=== PATIENT | female | born 1935 | race Caucasian/White ===

== ENCOUNTER 2023-11-16 10:57 | Observation (INO) | payer MEDICARE ==
[~2023-11-16] VITALS: Ht 152.4 cm; Wt 74.4 kg
[2023-11-16] VITALS (15 sets, daily range): BP systolic 96–146; BP diastolic 25–83
[2023-11-16 11:19] LABS: BASOPHILS 0.6 % (0-2); EOSINOPHILS 0.2 % (0-6); HEMATOCRIT 42.5 % (35.0-50.0); HEMOGLOBIN 14.3 g/dL (12.0-18.0); LYMPHOCYTES 22.7 % (24-44); MCH 30.9 (27-36); MCHC 33.7 g/dl (30-36); MCV 91.8 fl (81-99); NEUTROPHILS 70.5 % (39-80); PLATELET COUNT 183 K/uL (140-440); RBC 4.63 M/ul (4.3-5.7); RDW 13.4 (10.5-15.0)
[2023-11-16] MEDS ORDERED: LACTATED RINGER'S 1,000 ML IV ONE (11:30)
[2023-11-16 11:38] LABS: ALBUMIN 3.6 g/dL (3.4-5.0); ALBUMIN/GLOBULIN RATIO 1.33 (1.1-2.4); ANION GAP 14.5 (7-21); BILIRUBIN, TOTAL 1.3 ng/dL (0.2-1.0); BUN/CREATININE RATIO 16.05 (6.0-28.6); CALCIUM 10.5 mg/dL (8.5-10.1); CREATININE, SERUM 1.37 mg/dL (0.55-1.02); POTASSIUM 3.5 mmol/L (3.5-5.1); PROTEIN, TOTAL 6.3 g/dL (6.4-8.2)
[2023-11-16] MEDS ORDERED: dilTIAZem HCL 25 MG/5 ML VIAL IV ONE ×2 (11:45→13:00)
[2023-11-16 11:53] LABS: INFLUENZA B NAA NEGATIVE (NEGATIVE); RESPIRATORY SYNCYTIAL VIR NAA NEGATIVE (NEGATIVE)
[2023-11-16] MEDS ORDERED: ASPIRIN 81 MG CHEW PO ONE (12:00)
--- OUTSIDE RECORDS SUMMARY | 2023-11-16 12:30 | XMS ---
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 EYessi VISIT COUNT (12 MO.) 1 NADIA Santos TOTAL 1 NOTE: Visits indicate total known visits. ED/UCC VISIT TRACKING (12 MO.) 11/16/2023 10:[address] [facility] [place] TYPE: Emergency COMPLAINT: - WEAKNESS INPATIENT VISIT TRACKING (12 MO.) No inpatient visits to display in this time frame [email or web address]
[2023-11-16] MEDS ORDERED: ACIDOPHILUS PR1 EAC2 PO (12:50)
[2023-11-16] MEDS ORDERED: NORVASC5 MG PO (12:50)
[2023-11-16] MEDS ORDERED: VAZALORE81 MG PO (12:51)
[2023-11-16] MEDS ORDERED: LIPITOR40 MG PO (12:51)
[2023-11-16] MEDS ORDERED: DILTIAZEM HCl/D5W 100 ML IV ONE (13:00)
[2023-11-16] MEDS ORDERED: HYDROmorphone HCL 1 MG/ML SYR IV PRN (13:15)
[2023-11-16] MEDS ORDERED: CHLORTHALIDONE25 MG PO (13:34)
[2023-11-16] MEDS ORDERED: AZELASTINE205.5 MCG/ NS (13:34)
[2023-11-16] MEDS ORDERED: VITAMIN D325 MCG PO (13:35)
[2023-11-16] MEDS ORDERED: ARNUITY ELLIPT50 MCG (13:36)
[2023-11-16] MEDS ORDERED: EZETIMIBE10 MG PO (13:36)
[2023-11-16] MEDS ORDERED: GERITOL COMPLE1 EACH PO (13:36)
[2023-11-16] MEDS ORDERED: HYDROCODON-ACE1 EAC1 PO (13:37)
[2023-11-16] MEDS ORDERED: MAGNEBIND 4001 EAC1 (13:38)
[2023-11-16] MEDS ORDERED: OMEPRAZOLE40 MG PO (13:39)
[2023-11-16] MEDS ORDERED: CYMBALTA30 MG PO (13:39)
[2023-11-16] MEDS ORDERED: TELMISARTAN40 MG PO (13:40)
--- NOTE | 2023-11-16 14:14 | EKG ---
[facility] [address] [facility] [place], [place] [address] Signed Atrial fibrillation with rapid ventricular response Right bundle branch block Left anterior fascicular block Bifascicular block Abnormal ECG No previous ECGs available Confirmed by RICHIE HONG MD ([id number]) on 11/16/2023 2:13:51 PM Electronically Signed By: RICHIE HONG 11/16/23 1414 PATIENT NAME: EROSTRMARIA ELENA Electrocardiogram DATE OF : [birth year] PHYSICIAN: RICHIE HONG REPORT #: [id number] REPORT IS CONFIDENTIAL AND NOT TO BE RELEASED WITHOUT AUTHORIZATION
[2023-11-16] MEDS ORDERED: ondansetron HCL 4 MG/2 ML VIAL IV PRN (16:45)
[2023-11-16] MEDS ORDERED: METOPROLOL TARTRATE 5 MG/5 ML VIAL ONE (17:19)
[2023-11-16] MEDS ORDERED: METOPROLOL TARTRATE 5 MG/5 ML VIAL IV ONE (17:30)
[2023-11-16] MEDS ORDERED: LIDOCAINE & ANTACID 35 ML BTL PO ONE (17:45)
[2023-11-16] MEDS ORDERED: LIDOCAINE & ANTACID 35 ML BTL PO PRN (20:30)
[2023-11-16] MEDS ORDERED: LORazepam 2 MG/ML VIAL IV PRN (20:45)
[2023-11-16] MEDS ORDERED: diphenhydrAMINE HCL 50 MG/ML VIAL IV PRN (20:45)
[2023-11-16] MEDS ORDERED: MELATONIN 3 MG TAB PO PRN (21:00)
[2023-11-16] MEDS ORDERED: APIXABAN 5 MG TAB PO SCH (21:00)
[2023-11-16] MEDS ORDERED: KETOROLAC TROMETHAMINE 15 MG/ML VIAL IV PRN (21:00)
[2023-11-16] MEDS ORDERED: DULOXETINE HCL 30 MG CAP PO SCH (21:00)
[2023-11-17] VITALS (17 sets, daily range): BP systolic 104–147; BP diastolic 59–73
[2023-11-17 05:42] LABS: BASOPHILS 0.7 % (0-2); EOSINOPHILS 0.3 % (0-6); HEMATOCRIT 36.3 % (35.0-50.0); HEMOGLOBIN 12.7 g/dL (12.0-18.0); LYMPHOCYTES 11.9 % (24-44); MCH 31.7 (27-36); MCHC 35.1 g/dl (30-36); MCV 90.3 fl (81-99); MONOCYTES 7.5 % (0-12); NEUTROPHILS 79.6 % (39-80); PLATELET COUNT 146 K/uL (140-440); RBC 4.01 M/ul (4.3-5.7); RDW 13.3 (10.5-15.0)
[2023-11-17 05:53] LABS: ANION GAP 11.4 (7-21); BUN/CREATININE RATIO 16.78 (6.0-28.6); CALCIUM 9.7 mg/dL (8.5-10.1); CREATININE, SERUM 1.37 mg/dL (0.55-1.02); MAGNESIUM 1.4 mg/dL (1.8-2.4); POTASSIUM 3.4 mmol/L (3.5-5.1)
[2023-11-17] MEDS ORDERED: MAGNESIUM SULFATE 2 GM/50 ML BAG IV ONE (07:00)
[2023-11-17] MEDS ORDERED: POTASSIUM CHLORIDE 20 MEQ,LIDOCAINE HCL 1% 20 MG in DEXTROSE 5% 250 ML IV ONE (07:00)
[2023-11-17] MEDS ORDERED: AMLODIPINE BESYLATE 5 MG TAB PO SCH (09:00)
[2023-11-17] MEDS ORDERED: EZETIMIBE 10 MG TAB PO SCH (09:00)
[2023-11-17] MEDS ORDERED: ATORVASTATIN 40 MG TAB PO SCH (09:00)
[2023-11-17] MEDS ORDERED: LOSARTAN POTASSIUM 50 MG TAB PO SCH (09:00)
[2023-11-17] MEDS ORDERED: CHLORTHALIDONE 25 MG TAB PO SCH (09:00)
[2023-11-17] MEDS ORDERED: PANTOPRAZOLE SODIUM 40 MG TABEC PO SCH (09:00)
[2023-11-17] MEDS ORDERED: METOPROLOL TARTRATE 50 MG TAB PO SCH (09:15)
[2023-11-17] MEDS ORDERED: AZELASTINE137 MCG/0. NAS (10:35)
[2023-11-17] MEDS ORDERED: LO-DOSE ASPIRIN81 MG PO (10:37)
[2023-11-17] MEDS ORDERED: HYDROCODON-ACE1 EA11 PO (10:37)
[2023-11-17] MEDS ORDERED: FLUTICASONE PRO16 GM NAS (10:38)
--- NOTE | 2023-11-17 10:44 | EKG ---
[facility] [address] [facility] [place] [address] Signed Sinus rhythm with 1st degree AV block Right bundle branch block Left anterior fascicular block Bifascicular block Abnormal ECG When compared with ECG of 16-NOV-2023 11:06, Sinus rhythm has replaced Atrial fibrillation Vent. rate has decreased BY 62 BPM Non-specific change in ST segment in Anterior leads Confirmed by RICHIE HONG MD ([id number]) on 11/17/2023 10:44:30 AM Electronically Signed By: RICHIE HONG 11/17/23 1044 PATIENT NAME: MARIA ELENA DELA CRUZ Electrocardiogram DATE OF : [birth year] PHYSICIAN: RICHIE HONG REPORT #: [id number] REPORT IS CONFIDENTIAL AND NOT TO BE RELEASED WITHOUT AUTHORIZATION
[2023-11-17 11:31] LABS: BUN/CREATININE RATIO 18.84 (6.0-28.6); CALCIUM 9.7 mg/dL (8.5-10.1); CREATININE, SERUM 1.38 mg/dL (0.55-1.02); MAGNESIUM 2.2 mg/dL (1.8-2.4)
[2023-11-17] MEDS ORDERED: ELIQUIS5 MG PO (11:52)
[2023-11-17] MEDS ORDERED: METOPROLOL TART50 MG PO (11:53)
[2023-11-17] MEDS ORDERED: PHARMACY RENAL DOSE ADJUSTMENT 1 DOSE MISC PO SCH (12:00)
== END 2023-11-17 16:25 | disposition home or self-care (01) ==
LOC: ED 10:57 → CCU 10:59
PROVIDERS: Emergency Medicine; ADMIT Internal Medicine; ATTEND Internal Medicine
DX: I48.91 Unspecified atrial fibrillation (principal); R10.9 Unspecified abdominal pain; R79.89 Other specified abnormal findings of blood chemistry; E78.00 Pure hypercholesterolemia, unspecified; I10 Essential (primary) hypertension; Z66 Do not resuscitate; Z79.82 Long term (current) use of aspirin; Z79.899 Other long term (current) drug therapy; Z20.822 Contact with and (suspected) exposure to COVID-19
CPT/HCPCS: 36415; 74174; 80048; 80053; 83690; 83735; 84484; 85025; 87502; 93005; 93010; A9270; J1200; J1885; J2405; J3475; J3480; J3490; J7060; J7121; Q9967; U0002

== ENCOUNTER 2024-01-31 14:40 | Observation (INO) | payer MEDICARE ==
[~2024-01-31] VITALS: Ht 152.4 cm; Wt 71.7 kg
[~2024-01-31 14:40] MED LIST: ACIDOPHILUS PR1 EAC2 PO; ARNUITY ELLIPT50 MCG; AZELASTINE137 MCG/0. NAS; AZELASTINE205.5 MCG/ NS; CHLORTHALIDONE25 MG PO; CYMBALTA30 MG PO; ELIQUIS5 MG PO; EZETIMIBE10 MG PO; FLUTICASONE PRO16 GM NAS; GERITOL COMPLE1 EACH PO; HYDROCODON-ACE1 EA11 PO; HYDROCODON-ACE1 EAC1 PO; LIPITOR40 MG PO; LO-DOSE ASPIRIN81 MG PO; MAGNEBIND 4001 EAC1; METOPROLOL TART50 MG PO; NORVASC5 MG PO; OMEPRAZOLE40 MG PO; TELMISARTAN40 MG PO; VAZALORE81 MG PO; VENTOLIN HFA18 GM INH; VITAMIN D325 MCG PO
[2024-01-31 15:17] LABS: BILIRUBIN, URINE NEGATIVE (negative); BLOOD/HGB, URINE NEGATIVE (Negative); KETONE, URINE NEGATIVE (Negative); LEUK ESTERASE, URINE NEGATIVE (negative); NITRITE, URINE NEGATIVE (negative); PH, URINE 6.5 (5-7)
[2024-01-31] MEDS ORDERED: AZELASTINE137 MCG/0. NAS (15:21)
[2024-01-31] MEDS ORDERED: METOPROLOL TART25 MG PO (15:21)
[2024-01-31] MEDS ORDERED: EZETIMIBE10 MG PO (15:22)
[2024-01-31 16:22] LABS: BASOPHILS 1.1 % (0-2); EOSINOPHILS 0.3 % (0-6); HEMATOCRIT 42.9 % (35.0-50.0); LYMPHOCYTES 23.8 % (24-44); MCH 30.7 (27-36); MCHC 32.6 g/dl (30-36); MCV 94.2 fl (81-99); MONOCYTES 8.9 % (0-12); NEUTROPHILS 65.9 % (39-80); PLATELET COUNT 200 K/uL (140-440); RBC 4.56 M/ul (4.3-5.7); RDW 13.7 (10.5-15.0)
[2024-01-31 16:41] LABS: ALBUMIN 3.6 g/dL (3.4-5.0); ALBUMIN/GLOBULIN RATIO 1.16 (1.1-2.4); ALCOHOL, MEDICAL <3 ng/dL (<3); ALKALINE PHOSPHATASE 86 U/L (46-116); ALT (SGPT) 19 U/L (14-59); AST (SGOT) 22 U/L (15-37); BUN/CREATININE RATIO 15.07 (6.0-28.6); CALCIUM 10.2 mg/dL (8.5-10.1); CARBON DIOXIDE 27 mmol/L (21-32); CHLORIDE 102 mmol/L (98-107); CREATININE, SERUM 1.26 mg/dL (0.55-1.02); GLOMERULAR FILTRATION RATE,EST 41 mL/min (>60); MAGNESIUM 1.8 mg/dL (1.8-2.4); PROTEIN, TOTAL 6.7 g/dL (6.4-8.2); UREA NITROGEN 19 mg/dL (7-18)
[2024-01-31 20:01] VITALS: BP 155/81
[2024-01-31] MEDS ORDERED: ACETAMINOPHEN 325 MG TAB PO PRN (20:15)
--- NOTE | 2024-01-31 20:21 | NUR ---
THIS RN TO ED FOR BEDSIDE REPORT. PT TRANSPORTED VIA WC TO ROOM 120. PT ORIENTED TO SELF AND LOCATION ONLY. SBA TO BR TO VOID. PT ABLE TO DO OWN DERRICK CARE. BACK TO BED, HATTIE WELL. VS AND WEIGHT OBTAINED. LIMITED ADMISSION HX DUE TO PT CONFUSION. JELLO AND WATER PROVIDED. BED ALARM FOR SAFETY. PT IN VIEW OF NURSES STATION CALL LIGHT IN REACH.
--- NOTE | 2024-01-31 20:50 | NUR ---
BED ALARM SOUNDING. PT BELIEVES SOMETHING IS MOVING IN HER BED. ATTEMPTED TO REORIENT, PT NOT RECEPTIVE. ASSISTED TO REPOSITION. PT REPORTS CHRONIC BACK PAIN 04/04. PRN FOR PAIN ADMIN PER EMAR. NO SWALLOWING ISSUES NOTED. EXTRA BLANKET PROVIDED. BED ALARM IN PLACE.
--- NOTE | 2024-01-31 21:15 | NUR ---
BED ALARM SOUNDING. PT FREQUENTLY LEANING OVER SIDE OF BED TO LOOK FOR "SOMETHING" SHE DROPPED. SEIZURE PADS PLACED ON FLOOR FOR SAFETY.
--- NOTE | 2024-01-31 23:51 | NUR ---
BED ALARM SOUNDING. PT UP TO BR WITH SBA AND FWW TO VOID. GAIT UNSTEADY AT TIMES. PT ABLE TO DO OWN DERRICK CARE. AT SINK TO WASH HANDS. BACK TO BED, HATTIE WELL. PT HALLUCINATING, TALKING TO HER MOTHER SITTING IN THE RECLINER. NO FURTHER NEEDS. BED ALARM FOR SAFETY.
--- NOTE | 2024-02-01 02:16 | NUR ---
PT RESTING IN BED WITH EYES CLOSED. RESPIRATIONS EVEN. 0200 VS HELD AT THIS TIME TO ALLOW PT TO REST. CALL LIGHT IN REACH. BED ALARM FOR SAFETY.
--- NOTE | 2024-02-01 03:13 | NUR ---
PT RESTING IN BED WITH EYES CLOSED. RESPIRATIONS EVEN. CALL LIGHT IN REACH. BED ALARM FOR SAFETY. PT IN VIEW OF NURSES STATION.
--- NOTE | 2024-02-01 04:35 | NUR ---
PT RESTING IN RELAXED POSITION IN BED WITH EYES CLOSED. RESPIRATIONS EVEN. BED ALARM FOR SAFETY.
[2024-02-01 05:38] LABS: BASOPHILS 0.9 % (0-2); EOSINOPHILS 1.2 % (0-6); HEMATOCRIT 38.7 % (35.0-50.0); HEMOGLOBIN 13.1 g/dL (12.0-18.0); LYMPHOCYTES 33.7 % (24-44); MCH 31.5 (27-36); MCHC 33.9 g/dl (30-36); MCV 92.8 fl (81-99); MONOCYTES 9.6 % (0-12); NEUTROPHILS 54.6 % (39-80); PLATELET COUNT 164 K/uL (140-440); RBC 4.17 M/ul (4.3-5.7); RDW 13.7 (10.5-15.0)
[2024-02-01 05:49] LABS: ANION GAP 12.7 (7-21); BUN/CREATININE RATIO 14.15 (6.0-28.6); CALCIUM 9.5 mg/dL (8.5-10.1); CREATININE, SERUM 1.06 mg/dL (0.55-1.02); MAGNESIUM 1.6 mg/dL (1.8-2.4); POTASSIUM 3.7 mmol/L (3.5-5.1)
[2024-02-01 06:15] VITALS: BP 158/83
--- NOTE | 2024-02-01 06:25 | NUR ---
PT RESTING WITH EYES CLOSED. AWAKENS BRIEFLY. VS AND I&O OBTAINED. BED ALARM IN PLACE. CALL LIGHT IN REACH. PT IN VIEW OF NURSES STATION.
--- NOTE | 2024-02-01 07:20 | NUR ---
RECEIVED REPORT FROM SONJA DORMAN. ASSUMING CARE OF PT. PT RESTING WITH EYES CLOSED, RESPIRATIONS EVEN AND UNLABORED. CALL LIGHT WITHIN REACH, BED ALARM ON FOR SAFETY.
--- NOTE | 2024-02-01 08:51 | NUR ---
PT AWAKE IN BED EATING BREAKFAST. PT TAKES PO MEDICATION W/O DIFFICULTY. PT DENIES PAIN AND SOB AT THIS TIME. PT ORIENTED TO SELF AND PLACE, BUT STATES IT IS MAY OF "42" FOR THE DATE. PT STATES SHE IS CONFUSED TO WHY SHE IS AT THE HOSPITAL, PT STATES SHE DOES NOT RECALL EVENTS OF YESTERDAY EVENING. PT STATES GRANDDAUGHTER IS "ALWAYS WORRIED ABOUT SOMETHING". PT STATES SHE DOES NOT SEE ANYONE ELSE IN ROOM BESIDES SELF AND THIS RN. PT STATES NO NEEDS AT THIS TIME, CALL LIGHT WITHIN REACH.
[2024-02-01] MEDS ORDERED: FAMOTIDINE 20 MG TAB PO SCH (09:00)
[2024-02-01] MEDS ORDERED: MAGNESIUM SULFATE 2 GM/50 ML BAG IV ONE (09:15)
[2024-02-01 09:18] VITALS: BP 152/78
--- NOTE | 2024-02-01 09:40 | NUR ---
Spoke with pt. She states she lives with her granddaughter in an RV at the [employer]. Daughter works for the [employer] and is gone during the day and cannot assist pt. Pt doesn't feel she needs any assist. She states her granddaughter is very good to her. She agrees I can call her granddaughter. Pt states she cooks, cleans, shops, with granddaughter. Pt does not drive. I will contact the granddaughter as I was notified by staff, granddaughter stating she can no longer care for this pt.
--- NOTE | 2024-02-01 10:34 | NUR ---
ATTEMPTED TO VISIT DURING SPIRITUAL CARE ROUNDS. PT APPEARS TO BE SLEEPING. DID NOT DISTURB. PROVIDED PRAYER.
--- NOTE | 2024-02-01 10:45 | NUR ---
PT RESTING IN BED, AWAKENS TO RN IN ROOM. PT STATES NO NEEDS AT THIS TIME, CALL LIGHT WITHIN REACH.
--- NOTE | 2024-02-01 11:15 | NUR ---
UR NOTE OBSERVATION ORDER 01/31/24 1846 EXPECTED LOS <2 MIDNIGHTS PRIMARY INSURANCE: [facility] ([facility] NO SECONDARY
--- NOTE | 2024-02-01 11:20 | NUR ---
Notified by staff pts shivaniughter is here. She is standing in my doorway. Met with granduniqueughter. Updated, plans on pt going home today. Granddaughter upset and stating this is not what she has been told. She was told pt can stay here as needed. Discussed with Freddy, pts does not qualify for IP admission. Options are home with a cg or placement to assisted living. We went to the pts room. Granddaughter stating pt is unable to make her own decisions. Let her know the pt was oriented 2 hrs ago. She was able to state the town and the hospital. Granddaughter then states her mother has poa and makes the decisions. I let her know this is not legal. I cannot force a pt to go to placement unless they agree. We went to the pts room and I updated the pt, eladio does not feel she is safe at home and needs either placement or a cg. Pt declines placement. She does agree to a cg. The granddaughter at this point states to me, "Thanks for ruining my life". I gave her a brochure for [facility] and let her know she will need to set up a visit with them for an evaluation. She states she will be working the next two days. I let her know the plans on discharging pt today. Its best as she calls sooner to get assistance into the home. Dr. Fernandez stopped in briefly during our conversations and discussed pt is much clearer today. He spoke with the pt about hallucinating yesterday and saying she saw her mother. She is able to states today she realizes her mother is . We discussed what happens if pt needs LONG TERM, pt does have funds from selling her home. She would be able to cover a few months out of pocket. I let Freddy know once pt has spent her funds to $2000 dollars she can apply for assistance through [facility].
[2024-02-01] MEDS ORDERED: PHARMACY RENAL DOSE ADJUSTMENT 1 DOSE MISC PO SCH (12:00)
--- NOTE | 2024-02-01 12:39 | NUR ---
PATIENT CALLED TO USE BATHROOM. THIS TENTMAKER IN TO ASSIST PATIENT UP TO BATHROOM, SBA FWW. PATIENT NOW BACK TO BED. FAMILY MEMBER AND CASE MANAGMENT IN ROOM AT THIS TIME. BED ALARM ON. CALL LIGHT IN REACH. NO FURTHER NEEDS AT THIS TIME.
--- NOTE | 2024-02-01 12:44 | NUR ---
CASE MANAGEMENT AT THE BEDSIDE WITH PT'S FAMILY.
[2024-02-01 12:50] VITALS: BP 152/78
--- NOTE | 2024-02-01 13:26 | NUR ---
PT DAUGHTER AT THE BEDSIDE. UPDATED ON POC. PT AND DAUGHTER STATE ALL QUESTIONS HAVE BEEN ANSWERED AND STATE NO NEEDS AT THIS TIME. PT FINISHES LUNCH W/O DIFFICULTY, TRAY REMOVED. CALL LIGHT WITHIN REACH.
[2024-02-01 14:32] VITALS: BP 144/78
--- NOTE | 2024-02-01 15:55 | NUR ---
PT UP TO CHAIR. STATES NO NEEDS AT THIS TIME, CALL LIGHT WITHIN REACH.
--- NOTE | 2024-02-01 16:20 | NUR ---
PT BEGINS WALKING TOWARDS ROOM DOOR, THIS RN AND HOUSEKEEPER AND LAUNDRY ASSISTANT APPROACH PT, PT STATES SHE HAS SEEN HER GRANDDAUGHTER IN ANOTHER PT ROOM ACROSS THE P[place]ID[place]. THIS RN ASKS ORIENTATION QUESTIONS, PT UNAWARE THAT SHE IS IN THE HOSPITAL AND IS UNABLE TO SAY WHY SHE IS HERE. PT STATES "I KNOW YOU ARE LYING TO ME AND I AM NOT GOING TO A [facility]". THIS RN STATES THAT GRANDDAUGHTER IS COMING TO PICK PT UP TO GO HOME. PT STATES SHE HAS ALREADY SEEN HER GRANDDAUGHTER. THIS RN STATES SHE WILL CALL GRANDDAUGHTER, PT VERBALIZES UNDERSTANDING, SITS IN CHAIR. THIS RN CALLS PT GRANDDAUGHTER, GRANDDAUGHTER STATES SHE IS HERE, BUT NOT UP TO THE FLOOR YET.
--- NOTE | 2024-02-01 16:45 | NUR ---
PT GRANDDAUGHTER ARRIVES TO ROOM. PT AMBULATES TO WHEELCHAIR. PT WHEELED TO FRONT OF BUILDING BY NURSING PERSONEL.
--- NOTE | 2024-02-01 17:29 | EKG ---
[facility] [address] [facility] [place] [address] Signed Sinus rhythm with 1st degree AV block with occasional premature ventricular complexes and premature atrial complexes Pulmonary disease pattern Right bundle branch block Left anterior fascicular block Bifascicular block Minimal voltage criteria for LVH, may be normal variant ( R in aVL ) Abnormal ECG When compared with ECG of 06-JAN-2024 22:43, premature ventricular complexes are now present Criteria for Anterior infarct are no longer present Confirmed by RICHIE HONG MD ([id number]) on 02/01/2024 5:29:41 PM Electronically Signed By: RICHIE HONG 02/01/24 1729 PATIENT NAME: MARIA ELENA DELA CRUZ Electrocardiogram DATE OF : [birth year] PHYSICIAN: RICHIE HONG REPORT #: [id number] REPORT IS CONFIDENTIAL AND NOT TO BE RELEASED WITHOUT AUTHORIZATION
== END 2024-02-01 16:45 | disposition home or self-care (01) ==
LOC: ED 14:40 → MS 14:42
PROVIDERS: Emergency Medicine; ADMIT Internal Medicine; ATTEND Internal Medicine
DX: F03.92 Unspecified dementia, unspecified severity, with psychotic disturbance (principal); R79.89 Other specified abnormal findings of blood chemistry; I48.91 Unspecified atrial fibrillation; I10 Essential (primary) hypertension; Z79.899 Other long term (current) drug therapy
CPT/HCPCS: 36415; 70450; 71045; 80048; 80053; 81003; 83605; 83690; 83735; 84484; 85025; 93005; 93010; A9270; G0480; J3475

== ENCOUNTER 2024-03-24 11:13 | Inpatient (IN) | payer MEDICARE ==
[2024-03-24] VITALS (15 sets, daily range): BP systolic 91–136; BP diastolic 45–91
[~2024-03-24] VITALS: Ht 152.4 cm; Wt 82.8 kg
[~2024-03-24 11:13] MED LIST changes: +METOPROLOL TART25 MG PO
[2024-03-24 11:39] LABS: BASOPHILS 0.4 % (0-2); EOSINOPHILS 0.1 % (0-6); HEMATOCRIT 40.4 % (35.0-50.0); HEMOGLOBIN 13.3 g/dL (12.0-18.0); LYMPHOCYTES 11.5 % (24-44); MCH 30.1 (27-36); MCHC 32.9 g/dl (30-36); MCV 91.5 fl (81-99); MONOCYTES 6.2 % (0-12); NEUTROPHILS 81.8 % (39-80); PLATELET COUNT 172 K/uL (140-440); RBC 4.41 M/ul (4.3-5.7); RDW 14.2 (10.5-15.0)
[2024-03-24 11:57] LABS: ALBUMIN 3.3 g/dL (3.4-5.0); ALBUMIN/GLOBULIN RATIO 1.18 (1.1-2.4); ANION GAP 9.9 (7-21); BUN/CREATININE RATIO 13.29 (6.0-28.6); CALCIUM 9.7 mg/dL (8.5-10.1); CREATININE, SERUM 1.58 mg/dL (0.55-1.02); MAGNESIUM 1.7 mg/dL (1.8-2.4); POTASSIUM 3.9 mmol/L (3.5-5.1); PROTEIN, TOTAL 6.1 g/dL (6.4-8.2)
[2024-03-24] MEDS ORDERED: dilTIAZem HCL 25 MG/5 ML VIAL IV ONE (12:00)
[2024-03-24 14:20] LABS: BILIRUBIN, URINE NEGATIVE (negative); BLOOD/HGB, URINE NEGATIVE (Negative); KETONE, URINE NEGATIVE (Negative); LEUK ESTERASE, URINE NEGATIVE (negative); NITRITE, URINE NEGATIVE (negative)
[2024-03-24 14:25] LABS: EPITHELIAL CELLS, URINE SQUAMOUS 3+ /lpf (0-1+)
[2024-03-24 14:26] LABS: CRYSTALS, URINE NONE SEEN (0-1+)
[2024-03-24 14:27] LABS: BACTERIA, URINE 1+ /hpf (negative)
[2024-03-24 14:29] LABS: CASTS, URINE HYALINE 2+ \\lpf; COLLECTION TYPE, URINE CLEAN CATCH; REFLEX CULTURE, URINE No (No)
[2024-03-24] MEDS ORDERED: DILTIAZEM HCl/D5W 125 ML IV SCH (15:15)
[2024-03-24] MEDS ORDERED: FUROSEMIDE 40 MG/4 ML VIAL IV ONE (15:15)
[2024-03-24] MEDS ORDERED: ACETAMINOPHEN 325 MG TAB PO PRN (16:15)
[2024-03-24] MEDS ORDERED: ondansetron HCL 4 MG/2 ML VIAL IV PRN (16:15)
[2024-03-24] MEDS ORDERED: METOPROLOL TARTRATE 25 MG TAB PO SCH ×2 (18:00→21:00)
[2024-03-24] MEDS ORDERED: MAGNESIUM SULFATE 2 GM/50 ML BAG IV ONE (20:15)
[2024-03-24] MEDS ORDERED: DULOXETINE HCL 30 MG CAP PO SCH (21:00)
[2024-03-24] MEDS ORDERED: APIXABAN 5 MG TAB PO SCH (21:00)
[2024-03-24] MEDS ORDERED: PANTOPRAZOLE SODIUM 40 MG TABEC PO SCH (21:00)
[2024-03-24] MEDS ORDERED: ALBUTEROL/IPRATROPIUM 3 ML NEB INH PRN (21:00)
[2024-03-25] VITALS (26 sets, daily range): BP systolic 85–133; BP diastolic 53–106
[2024-03-25 05:31] LABS: BASOPHILS 0.5 % (0-2); EOSINOPHILS 0.9 % (0-6); HEMATOCRIT 37.5 % (35.0-50.0); HEMOGLOBIN 12.4 g/dL (12.0-18.0); LYMPHOCYTES 33.4 % (24-44); MCHC 33.2 g/dl (30-36); MCV 90.5 fl (81-99); MONOCYTES 8.8 % (0-12); NEUTROPHILS 56.4 % (39-80); PLATELET COUNT 152 K/uL (140-440); RBC 4.14 M/ul (4.3-5.7)
[2024-03-25 06:01] LABS: ALBUMIN 3.1 g/dL (3.4-5.0); ALBUMIN/GLOBULIN RATIO 1.24 (1.1-2.4); ANION GAP 10.5 (7-21); BUN/CREATININE RATIO 13.42 (6.0-28.6); CALCIUM 9.7 mg/dL (8.5-10.1); CREATININE, SERUM 1.49 mg/dL (0.55-1.02); PHOSPHORUS, INORGANIC 3.2 mg/dL (2.5-4.9); POTASSIUM 3.5 mmol/L (3.5-5.1); PROTEIN, TOTAL 5.6 g/dL (6.4-8.2)
[2024-03-25] MEDS ORDERED: FUROSEMIDE 40 MG/4 ML VIAL IV SCH ×2 (09:00→13:00)
[2024-03-25] MEDS ORDERED: ATORVASTATIN 40 MG TAB PO SCH (09:00)
[2024-03-25] MEDS ORDERED: PHARMACY RENAL DOSE ADJUSTMENT 1 DOSE MISC PO SCH (12:00)
--- NOTE | 2024-03-25 22:31 | EKG ---
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
[2024-03-26] VITALS (22 sets, daily range): BP systolic 79–117; BP diastolic 53–93
[2024-03-26 05:26] LABS: BASOPHILS 0.8 % (0-2); EOSINOPHILS 1.6 % (0-6); HEMATOCRIT 36.7 % (35.0-50.0); HEMOGLOBIN 12.3 g/dL (12.0-18.0); LYMPHOCYTES 32.9 % (24-44); MCH 30.2 (27-36); MCHC 33.6 g/dl (30-36); MCV 89.8 fl (81-99); MONOCYTES 8.6 % (0-12); NEUTROPHILS 56.1 % (39-80); PLATELET COUNT 158 K/uL (140-440); RBC 4.08 M/ul (4.3-5.7); RDW 14.2 (10.5-15.0)
[2024-03-26 05:42] LABS: ALBUMIN 2.9 g/dL (3.4-5.0); ALBUMIN/GLOBULIN RATIO 1.12 (1.1-2.4); ANION GAP 11.3 (7-21); BUN/CREATININE RATIO 14.83 (6.0-28.6); CALCIUM 9.3 mg/dL (8.5-10.1); CREATININE, SERUM 1.55 mg/dL (0.55-1.02); POTASSIUM 3.3 mmol/L (3.5-5.1); PROTEIN, TOTAL 5.5 g/dL (6.4-8.2)
[2024-03-26] MEDS ORDERED: dilTIAZem HCL 300 MG CAPCR PO SCH (09:00)
[2024-03-26] MEDS ORDERED: APIXABAN 2.5 MG TAB PO SCH (09:00)
[2024-03-26] MEDS ORDERED: POTASSIUM CHLORIDE 10 MEQ TABCR PO ONE (09:00)
[2024-03-26] MEDS ORDERED: SODIUM CHLORIDE 0.9% 250 ML IV SCH (15:15)
[2024-03-27] VITALS (9 sets, daily range): BP systolic 104–117; BP diastolic 55–86
[2024-03-27 05:42] LABS: BASOPHILS 0.8 % (0-2); EOSINOPHILS 1.2 % (0-6); HEMATOCRIT 39.1 % (35.0-50.0); MCH 30.2 (27-36); MCHC 33.4 g/dl (30-36); MCV 90.6 fl (81-99); PLATELET COUNT 175 K/uL (140-440); RBC 4.31 M/ul (4.3-5.7); RDW 14.5 (10.5-15.0)
[2024-03-27 05:58] LABS: ALBUMIN 3.1 g/dL (3.4-5.0); ALBUMIN/GLOBULIN RATIO 1.11 (1.1-2.4); BUN/CREATININE RATIO 12.63 (6.0-28.6); CALCIUM 9.7 mg/dL (8.5-10.1); CREATININE, SERUM 1.9 mg/dL (0.55-1.02); PROTEIN, TOTAL 5.9 g/dL (6.4-8.2)
[2024-03-27] MEDS ORDERED: SODIUM CHLORIDE 0.9% 1,000 ML IV SCH (07:30)
[2024-03-27] MEDS ORDERED: FUROSEMIDE 40 MG/4 ML VIAL IV SCH (09:00)
[2024-03-28] VITALS (8 sets, daily range): BP systolic 120–137; BP diastolic 59–98
[2024-03-28 05:45] LABS: BASOPHILS 0.9 % (0-2); EOSINOPHILS 1.8 % (0-6); HEMATOCRIT 39.7 % (35.0-50.0); HEMOGLOBIN 13.2 g/dL (12.0-18.0); LYMPHOCYTES 31.9 % (24-44); MCH 30.2 (27-36); MCHC 33.2 g/dl (30-36); MCV 90.7 fl (81-99); MONOCYTES 8.1 % (0-12); NEUTROPHILS 57.3 % (39-80); PLATELET COUNT 158 K/uL (140-440); RBC 4.37 M/ul (4.3-5.7); RDW 14.5 (10.5-15.0)
[2024-03-28 06:02] LABS: ALBUMIN/GLOBULIN RATIO 1.07 (1.1-2.4); ANION GAP 12.1 (7-21); BILIRUBIN, TOTAL 1.1 ng/dL (0.2-1.0); BUN/CREATININE RATIO 15.43 (6.0-28.6); CALCIUM 9.3 mg/dL (8.5-10.1); CREATININE, SERUM 1.49 mg/dL (0.55-1.02); POTASSIUM 4.1 mmol/L (3.5-5.1); PROTEIN, TOTAL 5.8 g/dL (6.4-8.2)
[2024-03-28] MEDS ORDERED: MICONAZOLE NITRATE 1 EA BTL TOP SCH (09:15)
[2024-03-28] MEDS ORDERED: DILTIAZEM ER300 MG PO (14:11)
[2024-03-28] MEDS ORDERED: ELIQUIS2.5 MG PO (14:12)
[2024-03-28] MEDS ORDERED: LASIX20 MG PO (14:13)
[2024-04-01] MEDS ORDERED: ZYRTEC10 MG PO (22:37)
[2024-04-01] MEDS ORDERED: MAGNESIUM OXID400 M1 PO (22:37)
== END 2024-03-28 14:20 | disposition home or self-care (01) | DRG 309 ==
LOC: ED 11:13 → CCU 11:15 → ED 11:15 → CCU 16:13 → MS 03-26 17:44 → CCU 03-26 17:44 → MS 03-28 14:20
PROVIDERS: Emergency Medicine; Internal Medicine; ADMIT Family Medicine; ATTEND Family Medicine
DX: I48.91 Unspecified atrial fibrillation (principal); I13.0 Hypertensive heart and chronic kidney disease with heart failure and stage 1 through stage 4 chronic kidney disease, or unspecified chronic kidney disease; N17.9 Acute kidney failure, unspecified; I50.9 Heart failure, unspecified; M19.90 Unspecified osteoarthritis, unspecified site; H26.9 Unspecified cataract; K59.00 Constipation, unspecified; Z66 Do not resuscitate; N18.30 Chronic kidney disease, stage 3 unspecified; E78.5 Hyperlipidemia, unspecified; K21.9 Gastro-esophageal reflux disease without esophagitis; Z98.890 Other specified postprocedural states; Z79.899 Other long term (current) drug therapy; E87.6 Hypokalemia
CPT/HCPCS: 36415; 71045; 80053; 80307; 81001; 83735; 83880; 84100; 84436; 84443; 84484; 85025; 93005; 93010; 93306; 94640; 94760; 96374; 96375; 97161; 99285-25; A9270; J1940; J3475; J7030

== ENCOUNTER 2024-06-22 17:54 | Emergency (ER) | payer MEDICARE ==
[~2024-06-22] VITALS: Ht 152.4 cm; Wt 76.4 kg
[~2024-06-22 17:54] MED LIST changes: +DILTIAZEM ER300 MG PO; +ELIQUIS2.5 MG PO; +LASIX20 MG PO; +MAGNESIUM OXID400 M1 PO; +ZYRTEC10 MG PO
[2024-06-22] MEDS ORDERED: JARDIANCE25 MG PO (18:12)
[2024-06-22] MEDS ORDERED: POTASSIUM CHLO20 ME2 PO (18:13)
[2024-06-22] MEDS ORDERED: FUROSEMIDE 40 MG/4 ML VIAL IV ONE (18:15)
[2024-06-22 18:42] LABS: BASOPHILS 1.2 % (0-2); EOSINOPHILS 1.3 % (0-6); HEMATOCRIT 39.7 % (35.0-50.0); HEMOGLOBIN 13.5 g/dL (12.0-18.0); LYMPHOCYTES 35.8 % (24-44); MCH 29.8 (27-36); MCHC 34.1 g/dl (30-36); MCV 87.4 fl (81-99); MONOCYTES 8.2 % (0-12); NEUTROPHILS 53.5 % (39-80); PLATELET COUNT 211 K/uL (140-440); RBC 4.54 M/ul (4.3-5.7); RDW 16.5 (10.5-15.0)
[2024-06-22 19:04] LABS: ALBUMIN 3.4 g/dL (3.4-5.0); ALBUMIN/GLOBULIN RATIO 1.17 (1.1-2.4); ANION GAP 11.2 (7-21); BILIRUBIN, TOTAL 0.7 ng/dL (0.2-1.0); BUN/CREATININE RATIO 11.56 (6.0-28.6); CALCIUM 10.1 mg/dL (8.5-10.1); CREATININE, SERUM 1.47 mg/dL (0.55-1.02); POTASSIUM 3.2 mmol/L (3.5-5.1); PROTEIN, TOTAL 6.3 g/dL (6.4-8.2)
[2024-06-22] MEDS ORDERED: POTASSIUM CHLORIDE 20 MEQ/15 ML CUP PO ONE (19:15)
[2024-06-22] MEDS ORDERED: POTASSIUM CHLORIDE 10 MEQ TABCR PO ONE (20:30)
[2024-06-22 21:02] VITALS: BP 116/86
--- NOTE | 2024-06-22 22:28 | EKG ---
[facility] [address] [facility] [place] [address] Signed Atrial fibrillation Right bundle branch block Left anterior fascicular block Bifascicular block Possible Lateral infarct , age undetermined Abnormal ECG When compared with ECG of 01-APR-2024 18:47, Borderline criteria for Lateral infarct are now present T wave inversion less evident in Lateral leads QT has lengthened Confirmed by Rinku Marsh MD () on 06/22/2024 10:28:11 PM Electronically Signed By: RINKU MARSH MD 06/22/24 2228 PATIENT NAME: MARIA ELENA DELA CRUZ Electrocardiogram DATE OF : [birth year] PHYSICIAN: RINKU MARSH MD REPORT #: [id number] REPORT IS CONFIDENTIAL AND NOT TO BE RELEASED WITHOUT AUTHORIZATION
== END 2024-06-22 21:02 | disposition home or self-care (01) ==
LOC: ED 17:54
PROVIDERS: Emergency Medicine
DX: I11.0 Hypertensive heart disease with heart failure (principal); I50.9 Heart failure, unspecified; I48.91 Unspecified atrial fibrillation; Z79.899 Other long term (current) drug therapy
CPT/HCPCS: 36415; 71045; 80053; 83880; 84484; 85025; 93005; 96374; 99285-25; A9270; J1940

== ENCOUNTER 2024-09-07 12:30 | Emergency (ER) | payer MEDICARE ==
[~2024-09-07] VITALS: Ht 162.6 cm; Wt 85.4 kg
[~2024-09-07 12:30] MED LIST changes: +GABAPENTIN300 MG PO; +JARDIANCE25 MG PO; +POTASSIUM CHLO20 ME2 PO
[2024-09-07 12:48] LABS: MCH 29.6 (27-36); MCHC 33.5 g/dl (30-36)
[2024-09-07 12:53] LABS: BASOPHILS 0.9 % (0-2); EOSINOPHILS 0.6 % (0-6); HEMATOCRIT 42.7 % (35.0-50.0); HEMOGLOBIN 14.3 g/dL (12.0-18.0); LYMPHOCYTES 21.2 % (24-44); MCV 88.3 fl (81-99); MONOCYTES 7.5 % (0-12); NEUTROPHILS 69.8 % (39-80); PLATELET COUNT 192 K/uL (140-440); RBC 4.84 M/ul (4.3-5.7); RDW 15.2 (10.5-15.0)
[2024-09-07 13:10] LABS: ALBUMIN 3.2 g/dL (3.4-5.0); ALBUMIN/GLOBULIN RATIO 0.89 (1.1-2.4); ANION GAP 11.9 (7-21); BILIRUBIN, TOTAL 1.1 ng/dL (0.2-1.0); BUN/CREATININE RATIO 13.01 (6.0-28.6); CREATININE, SERUM 1.69 mg/dL (0.55-1.02); POTASSIUM 2.9 mmol/L (3.5-5.1); PROTEIN, TOTAL 6.8 g/dL (6.4-8.2)
[2024-09-07] MEDS ORDERED: FUROSEMIDE 40 MG/4 ML VIAL IV ONE (14:30)
[2024-09-07] MEDS ORDERED: POTASSIUM CHLORIDE 10 MEQ TABCR PO ONE (14:30)
[2024-09-07] MEDS ORDERED: POTASSIUM CHLORIDE 10 MEQ/100 ML BAG IV SCH (14:30)
--- NOTE | 2024-09-07 15:35 | EKG ---
[facility] [address] [facility] [place] [address] Signed Atrial fibrillation Left axis deviation Right bundle branch block Abnormal ECG When compared with ECG of 22-JUN-2024 18:40, No significant change was found Confirmed by Rinku Marsh MD () on 09/07/2024 3:34:56 PM Electronically Signed By: RINKU MARSH MD 09/07/24 1535 PATIENT NAME: LANIEMARIA ELENA Electrocardiogram DATE OF : [birth year] PHYSICIAN: RINKU MARSH MD REPORT #: [id number] REPORT IS CONFIDENTIAL AND NOT TO BE RELEASED WITHOUT AUTHORIZATION
[2024-09-07] MEDS ORDERED: ALDACTONE25 MG PO (17:26)
[2024-09-07] MEDS ORDERED: K-TAB ER20 MEQ PO (17:26)
[2024-09-07] MEDS ORDERED: SPIRONOLACTONE 25 MG TAB PO ONE (17:30)
[2024-09-07 17:35] VITALS: BP 125/79
== END 2024-09-07 17:35 | disposition home or self-care (01) ==
LOC: ED 12:30
PROVIDERS: Emergency Medicine
DX: I11.0 Hypertensive heart disease with heart failure (principal); I50.9 Heart failure, unspecified; E87.6 Hypokalemia; I48.91 Unspecified atrial fibrillation; Z79.01 Long term (current) use of anticoagulants; Z79.899 Other long term (current) drug therapy; Z79.84 Long term (current) use of oral hypoglycemic drugs
CPT/HCPCS: 36415; 71045; 80053; 83735; 83880; 84484; 85025; 93005; 93010; 96365; 96366; 96375; 99285-25; A9270; J1940; J3480

== ENCOUNTER 2024-12-03 12:20 | Emergency (ER) | payer MEDICARE, OTHER ==
[~2024-12-03] VITALS: Ht 162.6 cm; Wt 74.0 kg
[~2024-12-03 12:20] MED LIST changes: +ALDACTONE25 MG PO; +K-TAB ER20 MEQ PO
[2024-12-03] MEDS ORDERED: ondansetron HCL 4 MG/2 ML VIAL IV ONE (12:30)
[2024-12-03 12:41] LABS: BASOPHILS 0.6 % (0-2); EOSINOPHILS 0.6 % (0-6); HEMATOCRIT 51.3 % (35.0-50.0); HEMOGLOBIN 17.6 g/dL (12.0-18.0); LYMPHOCYTES 20.3 % (24-44); MCH 30.2 (27-36); MCHC 34.3 g/dl (30-36); MONOCYTES 5.9 % (0-12); NEUTROPHILS 72.6 % (39-80); PLATELET COUNT 205 K/uL (140-440); RBC 5.83 M/ul (4.3-5.7); RDW 17.4 (10.5-15.0)
[2024-12-03 12:55] LABS: ALBUMIN 3.6 g/dL (3.4-5.0); ANION GAP 15.2 (7-21); BILIRUBIN, TOTAL 1.6 mg/dL (0.2-1.0); BUN/CREATININE RATIO 10.9 (6.0-28.6); CALCIUM 10.8 mg/dL (8.5-10.1); CREATININE, SERUM 2.2 mg/dL (0.55-1.02); MAGNESIUM 2.4 mg/dL (1.8-2.4); POTASSIUM 3.2 mmol/L (3.5-5.1); PROTEIN, TOTAL 7.2 g/dL (6.4-8.2)
[2024-12-03] MEDS ORDERED: ACETAMINOPHEN 325 MG TAB PO ONE (14:00)
[2024-12-03] MEDS ORDERED: ONDANSETRON ODT4 MG PO (16:58)
[2024-12-03] MEDS ORDERED: PEPCID20 MG PO (16:58)
[2024-12-03 17:32] VITALS: BP 122/85
--- NOTE | 2024-12-03 21:40 | EKG ---
[facility] [address] [facility] [place] [address] Signed Atrial fibrillation with rapid ventricular response Right bundle branch block Left anterior fascicular block Bifascicular block Septal infarct , age undetermined Abnormal ECG When compared with ECG of 07-SEP-2024 12:32, No significant change was found Confirmed by Rinku Marsh MD () on 12/03/2024 9:39:54 PM Electronically Signed By: RINKU MARSH MD 12/03/240 PATIENT NAME: MARIA ELENA DELA CRUZ Electrocardiogram DATE OF : [birth year] PHYSICIAN: RINKU MARSH MD REPORT #: [id number] REPORT IS CONFIDENTIAL AND NOT TO BE RELEASED WITHOUT AUTHORIZATION
== END 2024-12-03 17:34 | disposition home or self-care (01) ==
LOC: ED 12:20
PROVIDERS: Emergency Medicine
DX: R10.13 Epigastric pain (principal); R10.33 Periumbilical pain; I11.0 Hypertensive heart disease with heart failure; I50.9 Heart failure, unspecified; I48.91 Unspecified atrial fibrillation
CPT/HCPCS: 36415; 74176; 76705; 80053; 83690; 83735; 85025; 93005; 93010; 99284-25; A9270